=== PATIENT | female | born 1965 | race Caucasian/White ===

== ENCOUNTER 2024-08-16 12:13 | Emergency (ER) | payer OTHER, SELFPAY ==
[2024-08-16 12:14] VITALS: BP 121/74; PULSE 78; RESP 16; TEMP 36.5; O2SAT 100; BMI 31.3
--- NOTE | 2024-08-16 13:33 | RAD_ITS ---
PROCEDURE: SHOULDER MIN 2 VIEWS REASON FOR EXAM: Injury, with pain. TECHNIQUE: Four view left shoulder series COMPARISON: None. 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 The left glenohumeral joint is unremarkable in appearance. No acute fracture or dislocation. If clinical concern persists, short-term follow-up imaging may be obtained to r ule out a currently occult fracture. Reading Location: [id number]
--- NOTE | 2024-08-16 13:34 | EX.ED.UPPERE ---
HPI History of Present Illness HPI Narrative: Patient presents with left shoulder injury that occurred today. Patient states she slipped and fell forward. Patient states her shoulder was hyperflexed and her arm went above her head when she fell. Patient states she felt nauseated afterwards. Patient states that her pain is worse with certain movements. Patient states she took some ibuprofen which helped. Patient states her pain also is better with just resting. Patient describes her pain as dull and aching. Patient denies any paresthesias or weakness. Patient denies any head injury or loss of consciousness. Patient denies any other injuries. Chief Complaint: Upper Extremity Injury Informant: patient Occured/Mechanism Mechanism/Context: Yes fall Onset/Context/Timing Onset: Today Context: Sudden Onset Timing: Continuous Quality of Pain: Dull and Aching Location: Left shoulder Worsened by: Movement Relieved by: Rest, ibuprofen Associated Symptoms Associated Symptoms: Negative for Parasthesia, Weakness or Loss of Funtion [facility] Fall Allergy/AdvReac Type Severity Reaction Status Date / Time No Known Allergies Allergy Verified 08/16/24 12:16 Surgical History no surgical history no surgical history Social History Smoking Status: Unknown if ever smoked ROS ROS ED Constitutional Constitutional ED: Denies chills or fever(s) Eyes Eyes: Denies blurry vision or change in vision ENT ENT ED: Denies rhinorrhea or sore throat Cardiovascular Cardiovascular: Denies chest pain or palpitations Respiratory/Chest Respiratory/Chest: Denies cough or dyspnea Gastrointestinal Gastrointestinal: Reports nausea; Denies vomiting Genitourinary Genitourinary ED: Denies dysuria or hematuria Musculoskeletal Musculoskeletal: Denies back pain or neck pain Integumentary Denies abscess or rash Neurologic Neurologic: Denies headache(s) or weakness Allergic/Immunologic Allergic/Immunologic ED: Denies mouth swelling or urticaria EXAM Physical Exam Const Vital Signs: 08/16/24 12:14 Temperature 97.7 F L Temperature Source Oral Pulse Rate 78 Respiratory Rate 16 Blood Pressure 121/74 H Blood Pressure Mean 89 Pulse Ox 100 Oxygen Delivery Method Room Air Positive well nourished and well developed General Appearance ED: well developed and NAD HEENT Reports moist mucous membranes Neck full ROM and supple Extremity Extremity Narrative: There is tenderness over the left shoulder. There is no deformity noted. There is mild edema. Range of motion was slightly limited in complete flexion and complete abduction secondary to pain. There is no tenderness over the distal clavicle. Radial pulses are equal bilaterally. Strength is 5/5 bilaterally in the radial, median, and ulnar areas. Sensation is intact to light touch in the radial, median, ulnar, and axillary areas. Neuro oriented x3, CN's II-XII intact bilaterally, moves all extremities, no focal motor deficits and no sensory deficits noted Sensorium / Orientation: alert Motor Exam: strength 5/5 throughout Psych mental status grossly normal MDM MDM MDM Narrative Medical decision making narrative: Differential diagnosis include sprain, contusion, and occult fracture. X-rays of the left shoulder will be obtained to assess for occult fracture. Radiography Diagnostic Testing: X-rays of the left shoulder were obtained. There are 4 views. On my independent interpretation, there is no acute fracture or dislocation noted. There are some mild degenerative changes noted. Radiologist also interpreted the x-rays and agrees. Treatment and Re-Evaluation Narrative: Patient was advised of her findings. Patient was instructed to use ice to the area. Patient was instructed to continue using ibuprofen as needed for pain. Patient was instructed to follow-up with her primary care physician in 5 to 7 days. Patient was instructed return if worse in any way. Patient understood and was agreeable with the plan. All questions were answered. Discharge Plan Triage Chief Complaint: Upper Extremity Injury ED Provider: Terence Ling Dx/Rx/DC Orders Clinical Impression: Sprain of left shoulder, Fall Instructions: ED Shoulder Sprain Primary Care Provider: Care Physician,No Primary Referrals: NOT,DEFINED [Non-Staff] - 5-7 Days Print Language: Tajik Disposition Disposition: Home, Self Care
== END 2024-08-16 15:01 | disposition home or self-care (01) ==
PROVIDERS: Emergency Provider Emergency Medicine; Referring Provider Emergency Medicine; Visit Provider Emergency Medicine
DX: S43.402A Unspecified sprain of left shoulder joint, initial encounter (principal); W01.0XXA Fall on same level from slipping, tripping and stumbling without subsequent striking against object, initial encounter
CPT/HCPCS: 73030; 99282